=== PATIENT | male | born 1990 | race Hispanic/Latino ===

== ENCOUNTER 2021-07-26 21:48 | Emergency (ER) | payer OTHER, SELFPAY ==
--- NOTE | ~2021-07-26 | XR_ITS ---
EXAMINATION: XR chest 2V DATE: 07/26/2021 22:29 INDICATION: Chest pain and shortness of breath. TECHNIQUE: Frontal and lateral views of the chest were obtained on 3 radiographs. COMPARISON: None. FINDINGS: The chest demonstrates clear lungs without pneumonia, pleural effusion, or pneumothorax. Th e heart size is normal. IMPRESSION: 1. No acute cardiopulmonary disease. Reviewed, dictated and finalized at location A.
--- NOTE | 2021-07-26 21:52 | ECG_ITS ---
Measurements Intervals [place] Rate: 96 P: 52 KS: 168 QRS: 43 QRSD: 89 T: 38 QT: 326 QTc: 412 Interpretive Statements SINUS RHYTHM DELAYED PRECORDIAL R/S TRANSITION ST ELEVATION IN ANTERIOR LEADS- PROBABLY EARLY REPOLARIZATION ABNORMALITY BASELINE WANDER- III BORDERLINE ECG Electronically Signed On 07-27-2021 8:14:05 CDT by Gabriel Venegas D.O.
[2021-07-26 22:07] VITALS: BP 166/95; PULSE 93; RESP 14; TEMP 36.7; O2SAT 99
[2021-07-26 22:09] LABS: Basophils Percent Auto 0.5 % (0.2-1.2); Eosinophils Percent Auto 0.3 % (0-4.4); Hematocrit 41.6 % (42.0-52.0); Hemoglobin 13.8 g/dL (14.0-18.0); Immature Granulocyte Absolute 0.02 K/mm3 (0.00-0.031); Immature Granulocyte Percent A 0.3 % (0-0.5); Lymphocytes Absolute Auto 1.24 K/mm3 (0.9-3.2); Mean Corpuscular HGB Conc 33.2 g/dl (32-36); Mean Corpuscular Hemoglobin 28.8 pg (26-34); Mean Corpuscular Volume 86.8 fl (80-100); Mean Platelet Volume 10.8 fl (7.4-10.4); Monocytes Absolute Auto 0.7 K/mm3 (0.1-0.6); Monocytes Percent Auto 10.8 % (2.6-8.5); Neutrophils Absolute Auto 4.5 K/mm3 (1.3-6.7); Neutrophils Percent Auto 69.1 % (45.5-73.1); Platelet Count Result 240 k/mm3 (150-375); Red Blood Count 4.79 M/mm3 (4.6-6.20); Red Cell Distribution Width 12.7 % (11.5-14.5); White Blood Count 6.5 K/mm3 (4.5-10.0)
[2021-07-26 22:18] LABS: Anion Gap 11 mmol/L (8-16); Blood Urea Nitrogen 16 mg/dL (9-20); Carbon Dioxide 22 mmol/L (22-30); Chloride 101 mmol/L (98-107); Estimated CRCL calculation 134 ml/min; Estimated Glomerular Filt Rate > 60; Glucose 105 mg/dL (65-110); Potassium 3.8 mmol/L (3.4-5.0); Sodium 134 mmol/L (137-145)
[2021-07-26 22:20] LABS: INR 0.9; Prothrombin Time 12.4 Seconds (11.1-14.7)
[2021-07-26 22:21] LABS: Partial Thromboplastin Time 28.1 SECONDS (22.3-36.8)
[2021-07-26 22:30] LABS: Troponin I < 0.012 ng/mL (0.000-0.034)
[2021-07-26 23:54] VITALS: BP 149/94; PULSE 78; RESP 14; TEMP 36.8; O2SAT 98
[2021-07-27 00:03] VITALS: PULSE 80
[2021-07-27 00:34] VITALS: BP 129/56; PULSE 69; RESP 20
[2021-07-27 00:46] VITALS: BP 139/71; PULSE 87; RESP 18
[2021-07-27 01:01] VITALS: BP 134/82; PULSE 67; RESP 14
[2021-07-27 02:10] LABS: Troponin I < 0.012 ng/mL (0.000-0.034)
--- NOTE | 2021-07-27 02:14 | ED.GENADULT ---
HPI - General Adult General Chief complaint: Chest Pain Stated complaint: Chest pain - i think im having a heart attack Time Seen by Provider: 07/26/21 23:59 History of Present Illness HPI narrative: Patient is a 30-year-old male who presents ER with chest pain. 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 He kept trying to get it out then began to feel anxious. He then felt chest tightness and was short of breath. He became numb in his hands. He no longer has the symptoms and is calm down. He reports he had a feeling of impending doom. Is never had a panic attack. No previous history of MD. Related Data Home Medications Medication Instructions Recorded Confirmed No Home Medications 07/27/21 07/27/21 Allergies Allergy/AdvReac Type Severity Reaction Status Date / Time No Known Allergies Allergy Verified 07/27/21 00:05 Review of Systems Review of Systems: All systems reviewed & are unremarkable except as noted in HPI and below Constitutional: Constitutional: Denies chills, Denies fever(s) and Denies weakness ENT: Denies nasal congestion and Denies sore throat Cardiovascular: Cardiovascular: Reports chest pain, Denies rapid heart rate and Denies radiating jaw, neck or arm pain Respiratory: Respiratory: Denies cough, Reports dyspnea and Denies wheezing Neurologic: Denies headache(s), Denies focal weakness and Reports numbness (Tingling in the hands) Psychiatric: Psychiatric: Reports anxiety and Denies depression PMFSH Past Medical History Medical History (Updated 07/27/21 @ 02:21 by Carlos Munoz MD) Healthy adult male Surgical History Surgical History (Updated 07/27/21 @ 02:16 by Carlos Munoz MD) No history of previous surgery Social History Social History (Updated 07/27/21 @ 02:16 by Carlos Munoz MD) Smoking status: Never smoker Exam Narrative: GENERAL: Well-appearing, well-nourished, and in no acute distress. HEAD: Normocephalic, atraumatic. NECK: Supple. CHEST: Clear to auscultation. No respiratory distress. HEART: Regular rate and rhythm. No murmur heard. Normal peripheral pulses. ABDOMEN: Soft, nontender, nondistended. EXTREMITIES: Normal range of motion. No edema. SKIN: Warm, dry, no rash. NEURO: Alert and oriented x3. PSYCH: Normal mood and affect. Course Course Emergency Course: Chest pain-free. Troponin negative x2. Discharge home. Vital Signs Vital signs: Vital Signs Temperature 98.1 F 07/26/21 22:07 Pulse Rate 93 07/26/21 22:07 Respiratory Rate 14 07/26/21 22:07 Blood Pressure 166/95 H 07/26/21 22:07 Pulse Oximetry 99 07/26/21 22:07 Temperature 98.3 F 07/26/21 23:54 Pulse Rate 67 07/27/21 01:01 Respiratory Rate 14 07/27/21 01:01 Blood Pressure 134/82 07/27/21 01:01 Pulse Oximetry 98 07/26/21 23:54 Medical Decision Making Vital Signs Vital Signs: Vital Signs Temperature 98.1 F 07/26/21 22:07 Pulse Rate 93 07/26/21 22:07 Respiratory Rate 14 07/26/21 22:07 Blood Pressure 166/95 H 07/26/21 22:07 Pulse Oximetry 99 07/26/21 22:07 Temperature 98.3 F 07/26/21 23:54 Pulse Rate 67 07/27/21 01:01 Respiratory Rate 14 07/27/21 01:01 Blood Pressure 134/82 07/27/21 01:01 Pulse Oximetry 98 07/26/21 23:54 Lab Data Result diagrams: 07/26/21 21:58 07/26/21 21:58 Labs: Lab Results 07/26/21 07/26/21 07/26/21 Range/Units 21:58 21:58 21:58 WBC 6.5 (4.5-10.0) K/mm3 RBC 4.79 (4.6-6.20) M/mm3 Hgb 13.8 L (14.0-18.0) g/dL Hct 41.6 L (42.0-52.0) % MCV 86.8 (80-100) fl MCH 28.8 (26-34) pg MCHC 33.2 (32-36) g/dl RDW 12.7 (11.5-14.5) % Plt Count 240 (150-375) k/mm3 MPV 10.8 H (7.4-10.4) fl Immature Gran % (Auto) 0.3 (0-0.5) % Neut % (Auto) 69.1 (45.5-73.1) % Lymph % (Auto) 19.0 (18.3-44.2) % [place] % (Auto) 10.8 H (2.6-8.5) % Eos % (A
[2021-07-27 02:42] VITALS: BP 132/92; PULSE 70; RESP 16; O2SAT 98
== END 2021-07-27 02:42 | disposition home or self-care (01) ==
PROVIDERS: Family Medicine; Emergency Provider Emergency Medicine
DX: F41.0 Panic disorder [episodic paroxysmal anxiety] (principal)
CPT/HCPCS: 36415; 71046; 80048; 84484; 85025; 85610; 85730; 93005; 99284